=== PATIENT | female | born 1950 | race Caucasian/White ===

== ENCOUNTER → 2022-02-06 | Day surgery (SDC) | payer MEDICARE, BC ==
[~2022-02-06] MED LIST: Ketorolac 30 MG/ML SDV ONE; Lidocaine 0.5% 50 ML SDV ONE; Propofol 200 MG/20 ML SDV ONE
== END ==
LOC: JP.SDS 06:00
PROVIDERS: ATTEND Surgery
DX: G56.01 Carpal tunnel syndrome, right upper limb (principal); Z79.899 Other long term (current) drug therapy
CPT/HCPCS: 64721; J1885; J2704